=== PATIENT | female | born 2000 | race Caucasian/White ===

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

== ENCOUNTER 2021-01-21 16:26 | Emergency (ER) | payer OTHER, BC ==
[~2021-01-21] VITALS: Ht 152.4 cm; Wt 72.6 kg
[~2021-01-21 16:26] MED LIST: ONDANSETRON ODT8 MG PO
== END 2021-01-21 19:28 | disposition home or self-care (01) ==
LOC: ED 16:26
DX: K62.5 Hemorrhage of anus and rectum (principal); N93.9 Abnormal uterine and vaginal bleeding, unspecified
CPT/HCPCS: 80053; 81001; 84703; 85025; 85610; 85730; 99284